=== PATIENT | female | born 1955 | race Caucasian/White ===

== ENCOUNTER 2023-03-12 08:35 | Day surgery (SDC) | payer OTHER ==
[~2023-03-12] VITALS: Ht 170.2 cm; Wt 68.5 kg
[2023-03-12] VITALS (20 sets, daily range): BP systolic 104–128; BP diastolic 69–105
[2023-03-12] MEDS ORDERED: ATOR40TA PO (08:52)
[2023-03-12] MEDS ORDERED: ALBU90OI INH (08:53)
[2023-03-12] MEDS ORDERED: Robaxin750 MG PO (08:53)
--- NOTE | 2023-03-12 09:17 | NUR ---
Ambulatory in Day Surgery. History, Chart, Medications and Allergies reviewed before start of procedure. Lungs clear T/O to Auscultation. Patient confirms NPO status and agrees with scheduled surgery. Pre-Op teaching done. Pt verbalizes understanding. Patient States Post-Procedure ride home has been arranged.
--- NOTE | 2023-03-12 09:42 | NUR ---
03/12/23 0942 Valente Zhou HISTORY, CHART, MEDICATIONS AND ALLERGIES REVIEWED BEFORE START OF PROCEDURE. PATIENT CONFIRMS NPO STATUS AND AGREES WITH SCHEDULED PROCEDURE. 3-LEAD EKG REVIEWED WITH PHYSICIAN PRIOR TO START OF PROCEDURE. MONITOR INTACT WITH CONTINUOUS PULSE OXIMETRY,CAPNOGRAPHY, 3-LEAD EKG, INTERMITTENT BP. SUPPLEMENTAL O2 TO BE TITRATED THROUGHOUT PROCEDURE TO MAINTAIN O2 SATURATION ABOVE 90%. PATIENT DETERMINED TO BE ASA APPROPRIATE FOR PROPOFOL SEDATION PRIOR TO START OF PROCEDURE BY
--- NOTE | 2023-03-12 10:25 | NUR ---
Patient up to Ambulate independently. Gait steady. Discharge instructions reviewed with patient. Patient verbalizes understanding. Copy given to patient to take home. Patient States Post-Procedure ride home has been arranged. Discharged via wheelchair to private car for ride home.
== END 2023-03-12 10:25 | disposition home or self-care (01) ==
LOC: ORSCMMR 08:35 → ORD 09:00 → ORSCMMR 09:00 → ORD 03-19 10:30
PROVIDERS: Internal Medicine Gastroenterology
PROC: 0DBN8ZX Excision of Sigmoid Colon, Via Natural or Artificial Opening Endoscopic, Diagnostic (ICD-10-PCS; principal; 2023-03-12 09:00)
DX: K62.5 Hemorrhage of anus and rectum (principal); K63.5 Polyp of colon; K57.30 Diverticulosis of large intestine without perforation or abscess without bleeding; R19.4 Change in bowel habit; J45.909 Unspecified asthma, uncomplicated; E78.00 Pure hypercholesterolemia, unspecified; Z87.891 Personal history of nicotine dependence; Z79.899 Other long term (current) drug therapy
CPT/HCPCS: 82947; 88305; J2704; J7120

== ENCOUNTER → 2024-05-30 | Outpatient (CLI) | payer OTHER ==
[~2024-05-30] MED LIST: ALBU90OI INH; ATOR40TA PO; Robaxin750 MG PO
[2024-06-11 20:52] LABS: HPV HIGH RISK BY TMA Not Detected; HPV SOURCE Cervical/Vag
== END ==
LOC: LAB 11:58 → LAB SHORT 11:58
PROVIDERS: Family Medicine
DX: Z01.411 Encounter for gynecological examination (general) (routine) with abnormal findings (principal); N88.8 Other specified noninflammatory disorders of cervix uteri
CPT/HCPCS: 87624; G0123

== ENCOUNTER → 2024-05-30 | Outpatient (CLI) | payer OTHER | LOC: LAB 12:58 → LAB SHORT 12:58 | DX: N84.0 Polyp of corpus uteri (principal) | CPT/HCPCS: 88305 ==

== ENCOUNTER 2024-07-14 06:42 | Day surgery (SDC) | payer OTHER ==
[~2024-07-14] VITALS: Ht 172.7 cm; Wt 70.2 kg
[~2024-07-14 06:42] MED LIST changes: +Lactated Ringer's 1,000 ML IV ONE
[2024-07-14] MEDS ORDERED: Lactated Ringer's 1,000 ML IV ONE (07:20)
[2024-07-14] MEDS ORDERED: propofoL 20 ML IV ONE (07:53)
[2024-07-14] MEDS ORDERED: FentaNYL Citrate 50 MCG/ML 2 ML Injection ONE (07:54)
[2024-07-14] MEDS ORDERED: Atropine Sulfate 1% Opth Soln 2ML BTL ONE (08:19)
[2024-07-14] MEDS ORDERED: Atropine Sulfate 0.4 MG/1 ML Vial ONE (08:35)
[2024-07-14] MEDS ORDERED: Phenylephrine HCl 100 MCG/ML-NS 10MLSYR (1MG/10ML) ONE (08:35)
[2024-07-14] MEDS ORDERED: Ondansetron HCl 2 MG / ML 2ML Vial ONE (08:37)
[2024-07-14] MEDS ORDERED: Metoclopramide HCl 5MG / ML 2ML Vial ONE (08:37)
--- NOTE | 2024-07-14 10:11 | NUR ---
07/14/24 1011 Jacinto Amato PT REFUSED IBUPROFEN ADMINISTRATION D/T CONCERNS ABOUT NAUSEA.
[2024-07-14 10:17] VITALS: BP 125/72
== END 2024-07-14 10:10 | disposition home or self-care (01) ==
LOC: ORSCSDS 06:42
PROVIDERS: Obstetrics & Gynecology
PROC: 0UBC8ZZ Excision of Cervix, Via Natural or Artificial Opening Endoscopic (ICD-10-PCS; principal; 2024-07-14 08:00)
PROC: 0UDB8ZX Extraction of Endometrium, Via Natural or Artificial Opening Endoscopic, Diagnostic (ICD-10-PCS; principal; 2024-07-14 08:00)
DX: N95.0 Postmenopausal bleeding (principal); N84.1 Polyp of cervix uteri; J45.909 Unspecified asthma, uncomplicated; E78.5 Hyperlipidemia, unspecified; Z79.899 Other long term (current) drug therapy; Z87.891 Personal history of nicotine dependence
CPT/HCPCS: A9270; J0461; J2371; J2405; J2704; J2765; J3010; J7120